=== PATIENT | female | born 1955 | race Caucasian/White ===

== ENCOUNTER 2019-08-05 10:31 | Outpatient (CLI) | payer MEDICARE, OTHER, SELFPAY ==
--- NOTE | 2019-08-05 10:47 | MM_ITS ---
WS: [id number] BILATERAL DIGITAL SCREENING MAMMOGRAPHY WITH CAD CLINICAL INFORMATION: SCREENING HISTORY: Screening mammogram. No current complaints. COMPARISON: July 09, 2018 TECHNIQUE: Bilateral CC and MLO views. FINDINGS: Scattered fibroglandular densities bilaterally. Stable intramammary lymph nodes. Stable calcified nod ule measuring 13 mm mid left breast. No suspicious focal mass, asymmetry, calcifications, or architec tural distortion. No evidence of malignancy. MM/[place] [id number] IMPRESSION: BI-RADS: 2-Benign FOLLOW UP: 1 Year Follow-up Recommend return to annual screening mammography.
== END 2019-08-05 10:32 | disposition home or self-care (01) ==
LOC: RADSHAW 10:31
PROVIDERS: Family Provider Family Medicine; PCP Family Medicine; Visit Provider Obstetrics & Gynecology
DX: Z12.31 Encounter for screening mammogram for malignant neoplasm of breast (principal)
CPT/HCPCS: 77067

== ENCOUNTER 2019-11-19 10:37 | Emergency (ER) | payer MEDICARE, OTHER, SELFPAY ==
[2019-11-19 11:04] VITALS: BP 158/83; PULSE 75; RESP 18; TEMP 36.7; O2SAT 97; BMI 30.1
--- NOTE | 2019-11-19 11:16 | CT_ITS ---
WS: [id number] CT cervical spine. Additional two-dimensional coronal and sagittal reconstruction was performed. 11/18 Clinical Data: fall/trauma Comparison: None. DLP: 700.[address] scans at [facility] use at least one of these dose optimization techniques: automat ed exposure control; mA and/or kV adjustment per patient size (includes targeted exams where dose is matched to clinical indication); or iterative reconstruction. Findings: No compression fractures are seen. There is narrowing of the C5-C6 disc with minimal anterior and pos terior osteoarthritis change. The spinous processes are in good alignment. The odontoid is unremarkab le. There is no prevertebral soft tissue swelling. The soft tissues of the cervical spine and the anitha g apices are not remarkable. C2-C3: No disc bulge, canal stenosis or foraminal stenosis is seen. C3-C4: No disc bulge, canal stenosis or foraminal stenosis is seen. C4-C5: No disc bulge, canal stenosis or foraminal stenosis is seen. C5-C6: There is minimal osteoarthritic impingement on the spinal canal. Mild canal stenosis is presen t. C6-C7: No disc bulge, canal stenosis or foraminal stenosis is seen. C7-T1: No disc bulge, canal stenosis or foraminal stenosis is seen. CT/CT cervical spin wo con* [id number] Impression: 1. Negative for cervical spine fracture. 2. Osteoarthritis at C5-C6.
--- NOTE | 2019-11-19 11:16 | CT_ITS ---
WS: [id number] CT scan of the head, 11/19/2019 Clinical Data: fall/trauma Comparison: MRI of the head and brain, 04/01/2013 DLP: 760.[address] scans at [facility] use at least one of these dose optimization techniques: automat ed exposure control; mA and/or kV adjustment per patient size (includes targeted exams where dose is matched to clinical indication); or iterative reconstruction. Findings: The ventricular system is normal without shift. No recent infarct or hemorrhage is seen. There are no abnormal intracerebral masses. The cerebellum and brainstem are not remarkable. The cerebellar tonsi ls extend minimally below the foramen magnum but this is not changed. Bony windows of the skull and skull base show no fractures or erosions. The mastoid air cells, internet sales director al auditory canals, sella turcica, intraorbital contents, and paranasal sinuses are unremarkable. CT/CT head wo con* [id number] Impression: Negative CT scan of the head
--- NOTE | 2019-11-19 11:16 | CT_ITS ---
WS: [id number] CT scan of the maxillofacial region. Additional two-dimensional coronal and sagittal reconstruction w as performed. 11/19/2019 Clinical Data: fall; nasal trauma Comparison: None. DLP: 763.[address] scans at [facility] use at least one of these dose optimization techniques: automat ed exposure control; mA and/or kV adjustment per patient size (includes targeted exams where dose is matched to clinical indication); or iterative reconstruction. Findings: There is a comminuted fracture of the nasal bone at the tip. There is minimal subcutaneous air at the right side of the nasal bone. The remainder of the facial bones is unremarkable. The paranasal sinuses show no air-fluid levels. The orbits and orbital contents are normal. The mastoid air cells, internal auditory canals, and sell a turcica are not remarkable. The temporal mandibular joints appear to be normal. The zygomatic arches and nasal bones are normal. The floor of the mouth and parapharyngeal regions demonstrate no abnormalities. The salivary glands a ppear to be normal. CT/CT facial bones wo con* [id number] Impression: Comminuted fracture of the nasal bones.
--- NOTE | 2019-11-19 11:19 | ED_ITS ---
HPI - Fall General: Chief Complaint: Fall Stated Complaint: fall/hit face Time Seen by Provider: 11/19/19 11:07 Source: patient and family Mode of arrival: ambulatory Limitations: no limitations History of Present Illness: HPI Narrative: Patient is a very nice 63-year-old female who presents to ED today along with her for evaluation following a fall. Patient tells me she slipped on a wet surface and fell face first striking her face/nose. No LOC. She does not complain of a headache or neck pain. No other injury sustained during the fall. She notes pain to her nose as well as lacerations. Associated symptoms-after fall: Denies abdominal pain, chest pain, confusion, difficulty walking, headache(s), neck pain or vertigo Review of Systems Eyes: Denies: change in vision, blurry vision, blind spots, photophobia, eye discharge or seeing flashes ENMT: Reports: other (bleeding from nares); Denies: odynophagia Card: Denies: chest pain Resp: Denies: dyspnea GI: Denies: abdominal pain, nausea or vomiting Musc: Denies: neck pain, back pain, extremity pain or joint pain Skin/Breast: Reports: other (lacerations to nose) Neuro: Denies: headache(s), numbness in extremities, weakness in extremities, sensory changes, lack of coordination, difficulty walking, frequent falls, dizziness, vertigo, confusion or Slurred speech present [facility] ED PFSH: Medical History (Updated 11/19/19 @ 13:38 by LAURYN Solitario) Angiomyolipoma of kidney Fibromyalgia Gout, unspecified Localized osteoarthritis of both hands Osteoarthritis of both knees Surgical History H/O dilation and curettage (09/26/13) Dx: PMB. Performed by Dr. Mayra Gregory at [facility] in [place], [place]. History of total vaginal hysterectomy (TVH) (10/21/13) Total vaginal hysterectomy, Anterior vaginal repair, Single incision suburethral sling. Dx: PMB, uterovaginal prolapse, stress urinary incontinence. Performed by Dr. Malachi Silverman at [facility] in [place], [place]. Hx of tubal ligation Status post surgery (~2009) 2009 or . Kink in ureter. Performed in [place], [place]. Family History Mother Colon cancer Father Skin cancer CHF (congestive heart failure) COPD (chronic obstructive pulmonary disease) Heart disease Grandmother Stroke Ovarian cancer Diabetes Maternal Grandmother Stroke Social History Smoking and tobacco status: never smoked Alcohol intake: never Physical Exam Const: COMMON NORMALS: no acute distress, average body habitus, patient oriented x3, no limitations, healthy appearing, alert and well nourished HENMT: COMMON NORMALS: normocephalic, atraumatic, hearing grossly normal bilaterally, external ears normal, EAC's normal, TM's normal bilaterally, moist oral mucous membranes, oropharynx normal, dentition normal and gingiva normal HEAD & SCALP: normal to inspection, normocephalic and atraumatic FACE & SINUS: sinuses nontender NOSE: Other nasal findings present (see below) NOSE IMAGE: 1. through and through 1.0 cm laceration 2. laceration to bottom columella and medial pranay EXTERNAL EAR: Yes external ears normal EXTERNAL AUDITORY CANAL: EAC's normal TYMPANIC MEMBRANE: TM's normal bilaterally MOUTH: Normal oral and palatal mucosa present, lip normal and tongue normal THROAT: posterior oropharynx normal, tonsils normal and uvula midline OTHER: laceration to L lateral nare/lateral pranay-1.0cm; additional laceration through bottom portion of col umella and bilateral medial pranay Neck/C-Spine: COMMON NORMALS: full ROM CERVICAL SPINE: Yes cervical ROM normal, No pain with cervical ROM and No Cervical spine tenderness Chest: COMMONS NORMALS: normal inspection of the chest and normal palpation of entire chest wall Resp: COMMON NORMALS: normal respiratory effort Back/Pelvis: COMMON NORMALS: thoracic and lumbar spine normal to inspection, no thoracic nor lumbar tenderness and thoraco-lumbar ROM normal Extremity: COMMON NORMALS: normal to inspection and full ROM Neuro: COMMON NORMALS: patient oriented x3 SENSORIUM/ORIENTATION: Yes alert Skin: OTHER: see facial assessment Procedures Laceration Laceration 1: Site: face (nose) Side (If applicable): left Size (cm): 1.0 Description: linear Depth: [id number] Local Anesthetic: other anesthetic (L infraorbital block) Amount of anesthesia used (mL): 2.0 Pre-repair: wound explored and irrigated extensively Skin layer closed with: vicryl Size (cm): 5-0 Number of sutures: 4 Technique: simple, interrupted Laceration 2: Site: face (nose) Size (cm): 1.0 Description: stellate and irregular Depth: [id number] Local Anesthetic: lidocaine 2% Amount of anesthesia used (mL): 0.5 Pre-repair: wound explored and irrigated extensively Skin layer closed with: vicryl Size (cm): 5-0 Number of sutures: 5 Technique: simple, interrupted Course Vital Signs: Vital signs: Vital Signs Temperature 98.1 F 11/19/19 11:04 Pulse Rate 71 11/19/19 13:47 Respiratory Rate 17 11/19/19 13:47 Blood Pressure 133/74 11/19/19 13:47 Pulse Oximetry 95 11/19/19 13:47 MDM - Fall MDM Narrative: Medical decision making narrative: Wounds were irrigated and repaired with absorbable sutures. She does have a comminuted nasal bone fracture. We will place patient on antibiotics and get her prompt follow-up with ENT for further evaluation. Patient's head and C-spine CT scans were normal. Return to ED precautions given. Imaging Data^: CT Head: Radiologist's impression: [address] [address] [address] Scan Report Signed Patient: Aarti Biggs Unit #: [id number] : 1955 Age/Sex: 63 / F ADM Date: 11/19/19 Loc: ER Room/Bed: Attending Dr: Ordering Provider/Ordering MD: Sarah Hyman Date of Service: 11/19/19 Procedure(s): CT head wo con* [id number] Accession Number(s): [id number] Report Number: [id number] WS: [id number] CT scan of the head, 11/19/2019 Clinical Data: fall/trauma Comparison: MRI of the head and brain, 04/01/2013 DLP: 760.[address] scans at [facility] use at least one of these dose optimization techniques: automated exposure control; mA and/or kV adjustment per patient size (includes targeted exams where dose is matched to clinical indication); or iterative reconstruction. Findings: The ventricular system is normal without shift. No recent infarct or hemorrhage is seen. There are no abnormal intracerebral masses. The cerebellum and brainstem are not remarkable. The cerebellar tonsils extend minimally below the foramen magnum but this is not changed. Bony windows of the skull and skull base show no fractures or erosions. The mastoid air cells, internal auditory canals, sella turcica, intraorbital contents, and paranasal sinuses are unremarkable. CT/CT head wo con* [id number] Impression: Negative CT scan of the head Dictated By: Paige Walker MD Signed By: Paige Walker MD Signed Date/Time: 11/19/19 122 DD/ 122 CT cervical: Radiologist's impression: [address] [address] [address] Scan Report Signed Patient: Aarti Biggs Unit #: [id number] : 1955 Age/Sex: 63 / F ADM Date: 11/19/19 Loc: ER Room/Bed: Attending Dr: Ordering Provider/Ordering MD: Sarah Hyman Date of Service: 11/19/19 Procedure(s): CT cervical spin wo con* [id number] Accession Number(s): [id number] Report Number: [id number] WS: [id number] CT cervical spine. Additional two-dimensional coronal and sagittal reconstruction was performed. 11/19/2019 Clinical Data: fall/trauma Comparison: None. DLP: 700.[address] scans at [facility] use at least one of these dose optimization techniques: automated exposure control; mA and/or kV adjustment per patient size (includes targeted exams where dose is matched to clinical indication); or iterative reconstruction. Findings: No compression fractures are seen. There is narrowing of the C5-C6 disc with minimal anterior and posterior osteoarthritis change. The spinous processes are in good alignment. The odontoid is unremarkable. There is no prevertebral soft tissue swelling. The soft tissues of the cervical spine and the lung apices are not remarkable. C2-C3: No disc bulge, canal stenosis or foraminal stenosis is seen. C3-C4: No disc bulge, canal stenosis or foraminal stenosis is seen. C4-C5: No disc bulge, canal stenosis or foraminal stenosis is seen. C5-C6: There is minimal osteoarthritic impingement on the spinal canal. Mild canal stenosis is present. C6-C7: No disc bulge, canal stenosis or foraminal stenosis is seen. C7-T1: No disc bulge, canal stenosis or foraminal stenosis is seen. CT/CT cervical spin wo con* [id number] Impression: 1. Negative for cervical spine fracture. 2. Osteoarthritis at C5-C6. Dictated By: Paige Walker MD Signed By: Paige Walker MD Signed Date/Time: 11/19/19 1231 DD/ 1227 CT facial: Radiologist's impression: [address] [address] [address] Scan Report Signed Patient: Aarti Biggs Unit #: [id number] : 1955 688 Age/Sex: 63 / F ADM Date: 11/19/19 Loc: ER Room/Bed: Attending Dr: Ordering Provider/Ordering MD: Sarah Hyman Date of Service: 11/19/19 Procedure(s): CT facial bones wo con* [id number] Accession Number(s): [id number] Report Number: [id number] WS: [id number] CT scan of the maxillofacial region. Additional two-dimensional coronal and sagittal reconstruction was performed. 11/19/2019 Clinical Data: fall; nasal trauma Comparison: None. DLP: 763.[address] scans at [facility] use at least one of these dose optimization techniques: automated exposure control; mA and/or kV adjustment per patient size (includes targeted exams where dose is matched to clinical indication); or iterative reconstruction. Findings: There is a comminuted fracture of the nasal bone at the tip. There is minimal subcutaneous air at the right side of the nasal bone. The remainder of the facial bones is unremarkable. The paranasal sinuses show no air-fluid levels. The orbits and orbital contents are normal. The mastoid air cells, internal auditory canals, and sella turcica are not remarkable. The temporal mandibular joints appear to be normal. The zygomatic arches and nasal bones are normal. The floor of the mouth and parapharyngeal regions demonstrate no abnormalities. The salivary glands appear to be normal. CT/CT facial bones wo con* [id number] Impression: Comminuted fracture of the nasal bones. Dictated By: Paige Walker MD Signed By: Paige Walker MD Signed Date/Time: 11/19/19 1234 DD/ 1231 Discharge Plan Discharge Patient Disposition: Home, Self-Care Clinical Impression: Nasal bone fracture Qualifiers: Encounter type: initial encounter Fracture type: open Qualified Code(s): S02.2XXB - Fracture of nasal bones, initial encounter for open fracture Complex laceration of nose Qualifiers: Encounter type: initial encounter Qualified Code(s): S01.21XA - Laceration without foreign body of nose, initial encounter Condition: Stable Prescriptions: New hydrocodone-acetaminophen 5-325 mg tablet 1 tab PO Q6H PRN (Reason: pain) Qty: 14 RF: 0 Zofran 4 mg tablet 4 mg PO Q6H PRN (Reason: nausea and vomiting) Qty: 14 RF: 0 Augmentin 875-125 mg tablet 1 tab PO Q12H 7 Days Qty: 14 RF: 0 No Action niacin 500 mg tablet extended release 500 mg PO QAM RF: 0 allopurinol 100 mg tablet 100 mg PO DAILY RF: 0 evening primrose oil 500 mg capsule 500 mg PO DAILY RF: 0 alprazolam 0.25 mg tablet 0.25 mg PO DAILY PRN (Reason: anxiety) RF: 0 amitriptyline 100 mg tablet 100 mg PO DAILY RF: 0 duloxetine [Cymbalta] 60 mg capsule,delayed release(DR/EC) 60 mg PO DAILY RF: 0 Discharge Orders: Discharge Order (Routine); Ordered 11/19/19 Ordered By: Sarah Hyman Referrals: Sesar Loomis MD [Physician] - Kali Cabrales MD [Primary Care Provider] - Patient Instructions: Nasal Fracture (ED), Laceration (ED) Activity Restrictions/Additional Instructions: As discussed please keep wounds clean with warm soap and water several times daily. Begin your antibiotics immediately. You may take the pain and nausea medications as needed. Case management will contact you soon to establish your appointment for ENT follow-up with Dr. Loomis. Discharge Date/Time: 11/19/19 13:47 Coding Level of Care Code ED Photographic Equipment Assembler for Chg Fwd Exam Detailed
[2019-11-19] MEDS: tetanus-diphtheria tox (adult) 0.5 mL SDV IM (11:39)
[2019-11-19 11:40] VITALS: RESP 18; O2SAT 97
[2019-11-19] MEDS: morphine 4 mg/mL SDV 1 mL IM (11:40)
[2019-11-19] MEDS: ondansetron 2 mg/ML SDV 2 mL 4 MG IM (11:41)
[2019-11-19 12:16] VITALS: BP 182/111; PULSE 82; RESP 18; O2SAT 96
[2019-11-19] MEDS: lidocaine 2% INJ 20 mL INJECTION (12:30)
[2019-11-19 13:47] VITALS: BP 133/74; PULSE 71; RESP 17; O2SAT 95
--- NOTE | 2019-11-19 15:35 | DCPLANNER ---
electrical project manager was asked to schedule a follow up appointment for patient with Dr. Loomis. electrical project manager faxed patients information to the ENT clinic. Clinic will call complex case manager and patient with appointment information.
--- NOTE | 2019-11-26 10:11 | DCPLANNER ---
Patient had a follow up appointment with Dr. Loomis scheduled for 11.20.19. Patient did attend the appointment.
== END 2019-11-19 13:47 | disposition home or self-care (01) ==
PROVIDERS: Emergency Provider Physician Assistant; Family Provider Family Medicine; PCP Family Medicine
DX: S02.2XXB Fracture of nasal bones, initial encounter for open fracture (principal); S01.21XA Laceration without foreign body of nose, initial encounter; W01.0XXA Fall on same level from slipping, tripping and stumbling without subsequent striking against object, initial encounter; Z23 Encounter for immunization
CPT/HCPCS: 12011; 12345; 70450; 70486; 72125; 90471; 90714; 96372; 99282; 99283; J2001; J2270; J2405

== ENCOUNTER 2019-11-24 15:03 | Outpatient (CLI) | payer MEDICARE, OTHER, SELFPAY ==
[2019-11-24 15:53] LABS: Alanine Aminotransferase 17 U/L (0-33); Albumin Level 3.8 g/dL (3.5-5.2); Alkaline Phosphatase 60 IU/L (35-105); Anion Gap 12.2 (5-19); Aspartate Amino Transferase 24 U/L (0-32); Blood Urea Nitrogen 17 mg/dL (8-23); Calcium 8.9 mg/dL (8.5-10.5); Carbon Dioxide 30 mmol/L (22-29); Chloride 105 mmol/L (98-107); Globulin 2.4 g/dL (1.3-4.6); Glucose 112 mg/dL (65-115); Osmolality Calculated 293 mOsm/kg (285-295); Potassium 4.2 mmol/L (3.5-5.1); Sodium 143 mmol/L (136-145); Total Bilirubin 0.8 mg/dL (0.15-1.2); Total Protein 6.2 g/dL (6.6-8.7)
[2019-11-24 16:32] LABS: Basophils # 0.1 10^3/uL (0.0-0.1); Basophils % 0.8 %; Eosinophils # 0.2 10^3/uL (0.0-0.8); Eosinophils % 2.7 %; Hematocrit 36.1 % (37.0-47.0); Hemoglobin 11.7 g/dL (11.5-15.3); Lymphocytes # 1.4 10^3/uL (0.8-4.8); Lymphocytes % 18.6 %; Mean Corpuscular HGB Conc 32.4 g/dL (30.0-36.0); Mean Corpuscular Hemoglobin 31.5 pg (28.0-34.0); Mean Corpuscular Volume 97.3 fL (81-99); Mean Platelet Volume 10.8 fL (7.4-10.4); Monocytes # 0.6 10^3/uL (0.2-0.9); Monocytes % 7.7 %; Neutrophils # 5.2 10^3/uL (1.8-7.7); Neutrophils % 69.8 %; Nucleated Red Blood Cells % 0 %; Platelet Count 279 10^3/cmm (130-400); Red Blood Count 3.71 10^6/uL (4.1-5.3); Red Cell Distribution Width 13.2 % (12.1-15.1); White Blood Count 7.5 10^3/uL (4.0-10.0)
--- NOTE | 2019-11-24 18:21 | ECG_ITS ---
Measurements Intervals Tracy Rate: 85 P: 21 AZ: 158 QRS: -30 QRSD: 105 T: 50 QT: 352 QTc: 420 SINUS RHYTHM BORDERLINE LEFT AXIS DEVIATION [QRS AXIS < -20] MODERATE VOLTAGE CRITERIA FOR LVH, CONSIDER NORMAL VARIANT [MEETS CRITERIA IN ONE OF: R(aVL), S(V1), R(V5), R(V5/V6)+S(V1)] Compared to ECG 04/18/2019 10:47:50 ST (T wave) deviation no longer present Electronically Signed On 11-24-2019 20:36:28 CDT by Catrachito Mack M.D. [email or web address]
== END 2019-11-24 15:04 | disposition home or self-care (01) ==
LOC: RT 15:09
PROVIDERS: PCP Family Medicine; Visit Provider Specialist
DX: R00.0 Tachycardia, unspecified (principal)
CPT/HCPCS: 36415; 80053; 85025; 93005

== ENCOUNTER 2021-01-07 13:40 | Outpatient (CLI) | payer MEDICARE, OTHER, SELFPAY ==
--- NOTE | 2021-01-07 13:46 | USCV_ITS ---
Aarti Biggs Age: 65 Gender: F : 1955 Exam Date: 01/07/2021 13:54 Ordering Phys: Kali Cabrales MD Technologist: Tyesha Prieto Exam Location: [facility] [place] Indication: LT FOOT SWELLING HISTORY: Lt foot swelling 2 months PROCEDURES: Venous duplex imaging was performed in only the left lower extremity. The following venous structures were evaluated: common femoral vein, profunda vein, proximal portion of the greater saphenous vein, superficial femoral vein, and the popliteal vein. In addition, the posterior tibial and peroneal trunk were evaluated. Serial compression, augmentation maneuvers, and spectral Doppler flow evaluation were performed. FINDINGS: Normal 2-D Doppler and augmentation and compressibility throughout the lower extremity venous structures. Additional imaging through the proximal calf veins also reveals no thrombus. Limited evaluation of the greater saphenous vein is patent with no thrombus.. CONCLUSIONS No evidence of left lower extremity DVT. Castillo Archer MD (Electronically Signed) Final Date: 07 January 2021 15:03 S
== END 2021-01-07 13:41 | disposition home or self-care (01) ==
LOC: RAD 13:44
PROVIDERS: PCP Family Medicine; Visit Provider Family Medicine
DX: M79.89 Other specified soft tissue disorders (principal)
CPT/HCPCS: 93971

== ENCOUNTER 2021-01-26 14:03 | Outpatient (CLI) | payer MEDICARE, OTHER, SELFPAY ==
--- NOTE | 2021-01-26 14:06 | MM_ITS ---
WS: [id number] BILATERAL SCREENING DIGITAL MAMMOGRAM WITH CAD HISTORY: SCREENING COMPARISON: 08/05/2019, 07/09/2018 and 05/17/2017 Bilateral CC and MLO views submitted. Computer aided detection analyzed. Breast composition: There are scattered areas of fibroglandular density. No suspicious masses, microc alcifications or architectural distortion. Stable bilateral breast masses and calcifications. No inte rval change. MM/[place] [id number] IMPRESSION: BI-RADS: 2-Benign FOLLOW UP: 1 Year Follow-up
--- NOTE | 2021-01-26 14:57 | XR_ITS ---
WS: [id number] SCREENING DEXA SCAN [place] CLINICAL INFORMATION: ANNUAL EXAM, OSTEOPOROSIS COMPARISON: None. FINDINGS: The L1-L4 bone mineral density measures 1.244 g/cm2. This corresponds to a T score score of 0.5 and Z score of 1.0. Left femoral neck bone mineral density measures 0.921 g/cm2. This corresponds to a T score of -0.7 an d Z score of -0.2. Right femoral neck bone mineral density measures 0.965 g/cm2. This corresponds to a T score -0.3of an d Z score of 0.1. Mean femoral neck bone mineral density measures 0.943 g/cm2. This corresponds to a T score of -0.5 an d Z score of 0.0. XR/XR DEXA axial skeleton* [id number] IMPRESSION: Normal bone mineralization. Patient's FRAX calculated 10 year probability for major osteoporotic fracture i s 7.8 % and osteoporotic hip fracture is 0.6%.
== END 2021-01-26 14:04 | disposition home or self-care (01) ==
LOC: RADSHAW 14:05
PROVIDERS: PCP Family Medicine; Visit Provider Family Medicine
DX: Z12.31 Encounter for screening mammogram for malignant neoplasm of breast (principal); Z78.0 Asymptomatic menopausal state
CPT/HCPCS: 77067; 77080

== ENCOUNTER 2021-06-13 12:39 | Outpatient (CLI) | payer MEDICARE, OTHER, SELFPAY ==
--- NOTE | 2021-06-13 12:47 | US_ITS ---
WS: [id number] ULTRASOUND RIGHT BREAST HISTORY: MASS RIGHT BREAST 4 O'CLOCK POSITION COMPARISON: Screening mammogram 01/26/2021 TECHNIQUE: 2-D and Doppler. Ultrasound is directed to the area of clinical concern. Area of concern is at 3:00, 4 cm from the nip ple. There is a very vague area of increased echogenicity within the soft tissues. No discrete mass o r increased vascularity. There is an area of superficial bruising in this area also. I suspect these changes are related to prior trauma. On the recent mammogram of 01/26/2021 there was no abnormality. US/US breast RT limited* [id number] IMPRESSION: BI-RADS: 3-Probably Benign FOLLOW-UP: 6 Month Follow-up There is no discrete mass in the area of clinical concern as directed by the igor najera. Very slight increased echogenicity with adjacent superficial bruising. I suspect these changes may all be posttraumatic. Patient also feels like the fi ndings are improving. If these findings do not continue to improve follow-up im aging is recommended. No abnormality was noted on the prior mammogram of 021 and I favor the changes are probably posttraumatic seen by ultrasound.
== END 2021-06-13 12:40 | disposition home or self-care (01) ==
LOC: RAD 12:43
PROVIDERS: PCP Family Medicine; Visit Provider Family Medicine
DX: N64.4 Mastodynia (principal); N63.14 Unspecified lump in the right breast, lower inner quadrant
CPT/HCPCS: 76642

== ENCOUNTER 2021-10-11 06:00 | Outpatient (RCR) | payer MEDICARE, OTHER, SELFPAY | END 2021-11-08 23:59 | disposition home or self-care (01) | LOC: SPT 06:00 | PROVIDERS: PCP Family Medicine; Referring Provider Family Medicine; Visit Provider Family Medicine | DX: R29.898 Other symptoms and signs involving the musculoskeletal system (principal); M25.551 Pain in right hip | CPT/HCPCS: 97110; 97162 ==

== ENCOUNTER 2021-11-09 06:00 | Outpatient (RCR) | payer MEDICARE, OTHER, SELFPAY | END 2021-12-08 23:59 | disposition home or self-care (01) | LOC: SPT 06:00 | PROVIDERS: PCP Family Medicine; Referring Provider Family Medicine; Visit Provider Family Medicine | DX: R53.1 Weakness (principal); R29.898 Other symptoms and signs involving the musculoskeletal system; M25.551 Pain in right hip | CPT/HCPCS: 97110 ==

== ENCOUNTER 2022-02-06 12:35 | Outpatient (CLI) | payer MEDICARE, OTHER, SELFPAY ==
--- NOTE | 2022-02-06 13:00 | MM_ITS ---
WS: [id number] BILATERAL 3D TOMOSYNTHESIS DIGITAL SCREENING MAMMOGRAPHY WITH CAD CLINICAL INFORMATION: SCREENING HISTORY: Screening mammogram. No current complaints. COMPARISON: January 26, 2021 TECHNIQUE: Bilateral CC and MLO views. FINDINGS: Scattered fibroglandular densities bilaterally. Stable ovoid nodule mid LEFT breast with calcificatio n. A few incidental intramammary lymph nodes. Vascular calcification. No suspicious focal mass, asymm etry, calcifications, or architectural distortion. No evidence of malignancy. MM/[place] [id number] IMPRESSION: BI-RADS: 2-Benign FOLLOW UP: 1 Year Follow-up Recommend return to annual screening mammography.
== END 2022-02-06 12:36 | disposition home or self-care (01) ==
LOC: RAD 12:35
PROVIDERS: PCP Family Medicine; Visit Provider Family Medicine
DX: Z12.31 Encounter for screening mammogram for malignant neoplasm of breast (principal)
CPT/HCPCS: 77063; 77067

== ENCOUNTER → 2022-03-01 08:13 | Outpatient (BNVA) | payer MEDICARE, OTHER, SELFPAY | PROVIDERS: PCP Family Medicine; Visit Provider Family Medicine | DX: Z13.6 Encounter for screening for cardiovascular disorders (principal) | CPT/HCPCS: 80053; 80061; 85025 ==

== ENCOUNTER → 2022-03-13 10:22 | Outpatient (BNVA) | payer MEDICARE, OTHER, SELFPAY | PROVIDERS: PCP Family Medicine; Visit Provider Registered Nurse Neonatal Intensive Care | DX: N39.0 Urinary tract infection, site not specified (principal) | CPT/HCPCS: 81000 ==

== ENCOUNTER → 2022-03-30 13:41 | Outpatient (BNVA) | payer MEDICARE, OTHER, SELFPAY | PROVIDERS: PCP Family Medicine; Visit Provider Family Medicine | DX: R60.0 Localized edema (principal) | CPT/HCPCS: 80048 ==

== ENCOUNTER → 2022-08-07 17:12 | Outpatient (BNVA) | payer MEDICARE, OTHER, SELFPAY | PROVIDERS: PCP Family Medicine; Visit Provider Family Medicine | DX: R39.9 Unspecified symptoms and signs involving the genitourinary system (principal) | CPT/HCPCS: 81000 ==

== ENCOUNTER → 2022-08-14 12:23 | Outpatient (BNVA) | payer MEDICARE, OTHER, SELFPAY | PROVIDERS: PCP Family Medicine; Visit Provider Nurse Practitioner Family | DX: N39.0 Urinary tract infection, site not specified (principal) | CPT/HCPCS: 87086 ==

== ENCOUNTER → 2022-10-10 10:31 | Outpatient (BNVA) | payer MEDICARE, OTHER, SELFPAY | PROVIDERS: PCP Family Medicine; Visit Provider Family Medicine | DX: R10.2 Pelvic and perineal pain (principal) | CPT/HCPCS: 81000; 87086 ==

== ENCOUNTER 2022-10-30 07:03 | Outpatient (CLI) | payer MEDICARE, OTHER, SELFPAY ==
[2022-10-30] MEDS: iohexol 350 mg/mL 500 mL Btl (per mL) PO (08:30)
--- NOTE | 2022-10-30 08:30 | CT_ITS ---
WS: [id number] CT ABDOMEN AND PELVIS WITH CONTRAST HISTORY: pelvic pain for 2 years. TECHNIQUE: Imaging performed of the abdomen and pelvis with IV contrast and oral. Dual phase imaging of the abdomen and pelvis. Coronal and sagittal reformats are submitted. All CT scans at [facility] use at least one of these dose optimization techniques: automated exposure control; mA and/or kV adjustment per patient size (includes targeted exams where dose is matched to clinical indication ); or iterative reconstruction. IV CONTRAST: Omnipaque 350; 100 mL IV. Oral contrast: Yes. DLP: 1993.93 mGy.cm COMPARISON: 08/21/2017 Lower thorax: Mild dependent changes at the lung bases. Heart is normal size. Moderate size hernia. Liver/biliary system: Long-term stability 10 mm low-attenuation mass in the RIGHT lobe of the liver h as decreased in size. No bile duct dilatation. Gallbladder: Normal. No gallstones or wall thickening. No pericholecystic fluid. Pancreas: Moderate atrophy. No pancreatic duct dilatation. Spleen: Normal size spleen. No mass or infarct. Adrenal glands: Normal. Right kidney: Normal size kidney. Mildly prominent extrarenal pelvis with no obstruction. Left kidney: Normal size kidney. Fat-containing solid mass extends laterally from the mid kidney wade ures 4.0 x 4.5 x 5.0 cm. Mass has slightly increased in size slowly over the last several years. Ther e is very mild dilatation of the LEFT renal pelvis and proximal ureter. Normal excretion from the kid cynthia. The proximal ureter is dilated and tapers normally. There is a mild stenosis and possible neopla sm in the proximal LEFT ureter seen best on the coronal reformats. Suggest additional evaluation of t he ureter. Aorta: Mild atherosclerosis with no aneurysm. Origin of celiac axis is difficult to visualize. Lymphadenopathy: None. Free fluid: None. GI tract: Normally distended stomach. No small bowel obstruction. Moderate diffuse constipation with overlapping loops of colon. Prior appendectomy. Abdominal wall: Fat containing umbilical hernia. Pelvis: Hysterectomy. No free fluid or adenopathy. Visualized urinary bladder is normal. No filling d efects or calcifications. No pelvic mass or adenopathy. Bones: LEFT lateral curvature and scoliosis lumbar spine. CT/CT abdomen pelvis w con* [id number] IMPRESSION: 1. No bladder abnormality identified. 2. Prior hysterectomy and appendectomy. 3. Focal narrowing involving the proximal LEFT ureter. The more proximal urete r is dilated with only minimal dilatation of the LEFT renal pelvis and calyces. Similar to prior studies. LEFT ureter should be evaluated for possible underly ing stricture or mass. Recommend follow-up with urology. 4. No LEFT renal angiomyolipoma has slowly increased in size now measuring 4.0 x 4.5 x 5.0 cm. Most recent measurement 3.3 x 2.9 x 3.1 cm. 5. Moderate constipation. 6. Moderate hiatal hernia.
[2022-10-30 09:00] LABS: Blood Urea Nitrogen 13 mg/dL (8-23); Glomerular Filtration Rate 62.3 mL/min (90-130)
[2022-10-30] MEDS: iohexol 350 mg/mL 500 mL Btl (per mL) IV (09:13)
== END 2022-10-30 07:04 | disposition home or self-care (01) ==
PROVIDERS: Radiology Neuroradiology; PCP Family Medicine; Visit Provider Family Medicine
DX: R10.2 Pelvic and perineal pain (principal); K59.00 Constipation, unspecified; K44.9 Diaphragmatic hernia without obstruction or gangrene
CPT/HCPCS: 74177; 82565; 84520; Q9967

== ENCOUNTER 2023-02-07 08:42 | Outpatient (CLI) | payer MEDICARE, OTHER, SELFPAY ==
--- NOTE | 2023-02-07 09:04 | MM_ITS ---
WS: [id number] BILATERAL SCREENING DIGITAL TOMOSYNTHESIS MAMMOGRAM WITH CAD HISTORY: screening mammogram COMPARISON: 02/06/2022 and 01/26/2021, 08/05/2019 Bilateral CC and MLO views with tomosynthesis and synthetic mammography submitted. Computer aided det ection analyzed. Breast composition: There are scattered areas of fibroglandular density. No suspicious masses, microc alcifications or architectural distortion. Scattered nodules and calcifications are stable. No distor tion or new mass. IMPRESSION: MM/[place] [id number] BI-RADS: 2-Benign FOLLOW UP: 1 Year Follow-up
== END 2023-02-07 08:43 | disposition home or self-care (01) ==
LOC: RAD 08:44 → MOBLMAM 09:04
PROVIDERS: PCP Family Medicine; Visit Provider Family Medicine
DX: Z12.31 Encounter for screening mammogram for malignant neoplasm of breast (principal)
CPT/HCPCS: 77063; 77067; 81000; 87086

== ENCOUNTER → 2023-02-25 14:24 | Outpatient (BNVA) | payer MEDICARE, OTHER, SELFPAY | PROVIDERS: PCP Family Medicine; Visit Provider Registered Nurse Neonatal Intensive Care | DX: J02.9 Acute pharyngitis, unspecified (principal); R51.9 Headache, unspecified; J02.0 Streptococcal pharyngitis; Z20.822 Contact with and (suspected) exposure to COVID-19 | CPT/HCPCS: 87426; 87880 ==

== ENCOUNTER → 2023-03-11 12:23 | Outpatient (BNVA) | payer MEDICARE, OTHER, SELFPAY | PROVIDERS: PCP Family Medicine; Visit Provider Family Medicine | DX: R30.9 Painful micturition, unspecified (principal); E86.0 Dehydration | CPT/HCPCS: 81000 ==

== ENCOUNTER → 2023-04-09 09:53 | Outpatient (BNVA) | payer MEDICARE, OTHER, SELFPAY | PROVIDERS: PCP Family Medicine; Visit Provider Family Medicine | DX: Z13.6 Encounter for screening for cardiovascular disorders (principal) | CPT/HCPCS: 80053; 80061; 85025 ==

== ENCOUNTER → 2023-04-16 13:58 | Outpatient (BNVA) | payer MEDICARE, OTHER, SELFPAY | PROVIDERS: PCP Family Medicine; Visit Provider Nurse Practitioner Family | DX: Z85.828 Personal history of other malignant neoplasm of skin (principal); L82.1 Other seborrheic keratosis; L82.0 Inflamed seborrheic keratosis; D22.5 Melanocytic nevi of trunk; L72.0 Epidermal cyst | CPT/HCPCS: 17110; 99213 ==

== ENCOUNTER 2023-10-10 10:20 | Outpatient (RCR) | payer MEDICARE, OTHER, SELFPAY | END 2023-11-09 23:59 | disposition home or self-care (01) | LOC: SPT 10:20 | PROVIDERS: PCP Family Medicine; Visit Provider Family Medicine | DX: M54.41 Lumbago with sciatica, right side (principal) | CPT/HCPCS: 97110; 97161 ==

== ENCOUNTER 2023-11-10 06:00 | Outpatient (RCR) | payer MEDICARE, OTHER, SELFPAY | END 2023-12-03 23:59 | disposition home or self-care (01) | LOC: SPT 06:00 | PROVIDERS: PCP Family Medicine; Visit Provider Family Medicine | DX: M54.41 Lumbago with sciatica, right side (principal) | CPT/HCPCS: 97110 ==

== ENCOUNTER → 2024-05-27 09:22 | Outpatient (BNVA) | payer MEDICARE, OTHER, SELFPAY | PROVIDERS: PCP Family Medicine Adult Medicine; Visit Provider Nurse Practitioner Family | DX: L82.1 Other seborrheic keratosis (principal); L72.0 Epidermal cyst; L57.8 Other skin changes due to chronic exposure to nonionizing radiation; D23.71 Other benign neoplasm of skin of right lower limb, including hip; Z08 Encounter for follow-up examination after completed treatment for malignant neoplasm; Z85.828 Personal history of other malignant neoplasm of skin; L82.0 Inflamed seborrheic keratosis; L53.8 Other specified erythematous conditions; R20.8 Other disturbances of skin sensation; L29.89 Other pruritus; L57.0 Actinic keratosis | CPT/HCPCS: 11102; 17000; 17110; 99214 ==

== ENCOUNTER 2024-07-16 07:31 | Outpatient (CLI) | payer MEDICARE, OTHER, SELFPAY ==
--- NOTE | 2024-07-16 07:40 | CT_ITS ---
WS: [id number] CT ABDOMEN AND PELVIS WITH CONTRAST HISTORY: PELVIC PAIN TECHNIQUE: Imaging performed of the abdomen and pelvis with IV contrast. Single phase imaging of the abdomen. Coronal and sagittal reformats are submitted. All CT scans at [facility] use at least one of these dose optimization techniques: automated exposure control; mA and/or kV adjustment per patient size (includes targeted exams where dose is matched to clinical indication); or iterative reconstruction. IV CONTRAST: Omnipaque 350; 100 mL IV. Oral contrast: Yes. DLP: 815.49 mGy.cm COMPARISON: 10/30/2022, 08/21/2017 Lower thorax: Lung bases are clear. Heart is normal size. Moderate size hiatal hernia. Liver/biliary system: Normal size liver. Liver is being slightly deformed by interposed colon between the liver and diaphragm which was present on prior studies. Too small to characterize hypodensity in the inferior RIGHT lobe. Previously described hypodensity in the far lateral RIGHT lobe is poorly vi sualized on today's study. Suspect this may be a hemangioma. Gallbladder: Normal. No gallstones or wall thickening. No pericholecystic fluid. Pancreas: Moderate atrophy. Spleen: Normal size spleen. No mass or infarct. Adrenal glands: Normal. Right kidney: No change. Extrarenal pelvis. No obstruction. Left kidney: Fat containing solid mass extending laterally from the mid kidney measures 4.1 x 4.3 x 4.8 cm. No interval increase in size since the most recent study. Small extrarenal pelvis. Aorta: Mild atherosclerosis with no aneurysm. Lymphadenopathy: None. Free fluid: None. GI tract: Nondistended stomach. No small bowel obstruction. Diffuse constipation. Abdominal wall: Fat containing umbilical hernia. Pelvis: Prior hysterectomy. Urinary bladder is not distended. No free fluid or adenopathy. Bones: S-shaped curvature lumbar spine. No destructive bone lesions. CT/CT abdomen pelvis w con* [id number] IMPRESSION: 1. Marked diffuse constipation. No obstruction. 2. Moderate size hiatal hernia. 3. No adenopathy or ascites. 4. Stable fat-containing mass involving the LEFT kidney consistent with the kn own LEFT renal angiomyolipoma measuring 4.1 x 4.3 x 4.8 cm. No significant incr ease in size since the most recent exam.
[2024-07-16] MEDS: iohexol 350 mg/mL 500 mL Btl (per mL) PO (07:41)
[2024-07-16] MEDS: iohexol 350 mg/mL 500 mL Btl (per mL) IV (08:58)
== END 2024-07-16 07:32 | disposition home or self-care (01) ==
LOC: RAD 07:32
PROVIDERS: PCP Family Medicine Adult Medicine; Visit Provider Electrodiagnostic Medicine
DX: R10.2 Pelvic and perineal pain (principal); K59.00 Constipation, unspecified; K44.9 Diaphragmatic hernia without obstruction or gangrene; R93.2 Abnormal findings on diagnostic imaging of liver and biliary tract; K86.89 Other specified diseases of pancreas; N28.89 Other specified disorders of kidney and ureter; R93.422 Abnormal radiologic findings on diagnostic imaging of left kidney; I70.0 Atherosclerosis of aorta; K42.9 Umbilical hernia without obstruction or gangrene; Z98.890 Other specified postprocedural states; M43.8X6 Other specified deforming dorsopathies, lumbar region
CPT/HCPCS: 74177

== ENCOUNTER → 2024-10-01 10:21 | Outpatient (BNVA) | payer MEDICARE, OTHER, SELFPAY | PROVIDERS: PCP Family Medicine Adult Medicine; Visit Provider Student in an Organized Health Care Education/Training Program | DX: M70.61 Trochanteric bursitis, right hip (principal) | CPT/HCPCS: 20610; 99204; J3301; J3490; J9999 ==

== ENCOUNTER 2024-10-20 12:14 | Outpatient (RCR) | payer MEDICARE, OTHER, SELFPAY | END 2024-11-08 23:59 | disposition home or self-care (01) | LOC: SPT 12:14 | PROVIDERS: Visit Provider Student in an Organized Health Care Education/Training Program | DX: M70.61 Trochanteric bursitis, right hip (principal) | CPT/HCPCS: 97110; 97161 ==

== ENCOUNTER → 2024-10-21 14:27 | Outpatient (BNVA) | payer MEDICARE, OTHER, SELFPAY | PROVIDERS: Visit Provider Dermatology | DX: L81.4 Other melanin hyperpigmentation (principal); L72.0 Epidermal cyst; L82.1 Other seborrheic keratosis; D22.5 Melanocytic nevi of trunk; D69.2 Other nonthrombocytopenic purpura; L73.8 Other specified follicular disorders; Z08 Encounter for follow-up examination after completed treatment for malignant neoplasm; Z85.828 Personal history of other malignant neoplasm of skin; L82.0 Inflamed seborrheic keratosis; L57.0 Actinic keratosis | CPT/HCPCS: 17000; 17110; 99213 ==

== ENCOUNTER 2024-11-09 05:00 | Outpatient (RCR) | payer MEDICARE, OTHER, SELFPAY | END 2024-11-28 12:30 | disposition home or self-care (01) | LOC: SPT 05:00 | PROVIDERS: PCP Electrodiagnostic Medicine; Visit Provider Student in an Organized Health Care Education/Training Program | DX: M70.61 Trochanteric bursitis, right hip (principal) | CPT/HCPCS: 97110 ==

== ENCOUNTER 2024-11-09 17:13 | Emergency (ER) | payer MEDICARE, OTHER, SELFPAY ==
[2024-11-09 17:18] VITALS: BP 111/64; PULSE 97; RESP 18; TEMP 36.6; O2SAT 97; BMI 34.0
[2024-11-09 18:24] VITALS: BP 123/67; PULSE 68; O2SAT 97
[2024-11-09 18:30] VITALS: BP 113/74; PULSE 67; O2SAT 95
[2024-11-09] MEDS: lidocaine 2% INJ 20 mL INJECTION (18:44)
--- NOTE | 2024-11-09 18:44 | PC.NURSE ---
pt wrist wound cleansed with ns, irrigated with ns, pat dry and a gauze placed over wound.
--- NOTE | 2024-11-09 19:23 | W.ED.WOUNDLC ---
HPI - Wound/Laceration General: Chief Complaint: Wound/Laceration Stated Complaint: fall / lt arm lac Time Seen by Provider: 11/09/24 17:59 History of Present Illness: This patient is a 68-year-old white female who presents to the emergency department for evaluation of a laceration of the left wrist. Patient states she was carrying a dish and it fell. She then slipped and lacerated her wrist on one of the broken pieces. Related Data Home Medications ?Medication ?Instructions ?Recorded ?Confirmed atorvastatin 40 mg tablet (Lipitor) 40 mg PO DAILY 10/01/24 10/01/24 coQ10 (ubiquinol) 100 mg capsule 100 mg PO BID 10/01/24 10/01/24 (Qunol Karthik CoQ10) collagen,hydrolysate 500 mg-biotin cap PO 10/01/24 10/01/24 800 mcg-ascorbic acid 50 mg capsule (Collagen 1500 Plus C) Previous Rx's ?Medication ?Instructions ?Recorded amitriptyline 50 mg tablet See Rx Instructions .Route 01/09/24 .COMPLEX #90 tabs duloxetine 60 mg capsule,delayed 60 mg PO DAILY #90 caps 01/09/24 release (Cymbalta) omeprazole 40 mg capsule,delayed 40 mg PO DAILY #90 caps 01/09/24 release solifenacin 10 mg tablet 10 mg PO DAILY #90 tabs 04/10/24 allopurinol 100 mg tablet See Rx Instructions .Route 06/17/24 .COMPLEX #90 tabs meloxicam 7.5 mg tablet See Rx Instructions .Route 06/17/24 .COMPLEX #180 tabs hydrochlorothiazide 25 mg tablet 25 mg PO QAM Edema/Htn #90 tabs 06/26/24 cephalexin 500 mg capsule 500 mg PO TID 7 days #21 caps 11/09/24 Allergies Allergy/AdvReac Type Severity Reaction Status Date / Time No Known Allergies Allergy Verified 11/09/24 17:15 Review of Systems General: Reports: 10 or more systems reviewed and unremarkable except in HPI and below PFSH ED PFSH: Medical History Osteoarthritis involving multiple joints on both sides of body both hands, both knees, rt shoulder, DDD cervical & Lumbar spine Osteoarthritis of right shoulder Herpes zoster Dx 02/27/2023 Pneumonia Insomnia History of nonmelanoma skin cancer Gastroesophageal reflux Fibromyalgia Angiomyolipoma of kidney Localized osteoarthritis of both hands Surgical History S/P nasal surgery (~11/2019) Broke nose from fall[place] [facility] [place] Hx of tubal ligation Status post surgery (~2009) 2009 or 11. Kink in ureter. Performed in [place], [place]. H/O dilation and curettage (09/26/13) Dx: PMB. Performed by Dr. Mayra Gregory at [facility] in [place], [place]. History of total vaginal hysterectomy (TVH) (10/21/13) Total partial vaginal hysterectomy, Anterior vaginal repair, Single incision suburethral sling. Dx: PMB, uterovaginal prolapse, stress urinary incontinence. Performed by Dr. Malachi Silverman at [facility] in [place], [place]. Family History Mother Colon cancer Father Skin cancer Congestive heart failure (CHF) COPD (chronic obstructive pulmonary disease) Heart disease Grandmother Stroke Ovarian cancer Diabetes Maternal Grandmother Stroke Social History Smoking and tobacco/nicotine status: never used tobacco/nicotine Alcohol intake: never Substance/Drug Use: never Physical Exam Skin: NARRATIVE SKIN EXAM: Approximately 3 cm laceration to the anterior aspect of the left wrist. No involvement of tendons, nerves or vascular structures. Procedures Laceration Laceration 1: Site: upper extremity Side (If applicable): left Size (cm): 3 Description: linear Depth: simple, single layer Local Anesthetic: lidocaine 2% Amount of anesthesia used (mL): 5 Pre-repair: wound explored, irrigated extensively and deep structures intact Skin layer closed with: nylon Size (cm): 3-0 Number of sutures: 1 Technique: running Course Vital Signs: Vital signs: Vital Signs Temperature 97.9 F 11/09/24 17:18 Pulse Rate 67 11/09/24 18:30 Respiratory Rate 18 11/09/24 17:18 Blood Pressure 113/74 11/09/24 18:30 Pulse Oximetry 95 11/09/24 18:30 Oxygen Delivery Me thod Room Air 11/09/24 18:30 MDM - Wound/Laceration Medical Decision Making Patient's tetanus was updated. She was placed on Keflex and given her first dose in the emergency department. Recommended she have the sutures removed in 7 to 10 days. She was discharged in stable condition. No radiology studies performed this visit Discharge Plan Discharge Patient Disposition: Home Clinical Impression: Laceration Condition: Stable Prescriptions: New cephalexin 500 mg capsule 500 mg PO TID 7 Days Qty: 21 0RF No Action amitriptyline 50 mg tablet See Rx Instructions .ROUTE .COMPLEX Qty: 90 1RF Dose Instruction: TAKE 1 TABLET BY MOUTH EVERY DAY Rx Instructions: TAKE 1 TABLET BY MOUTH EVERY DAY duloxetine [Cymbalta] 60 mg capsule,delayed release(DR/EC) 60 mg PO DAILY Qty: 90 1RF omeprazole 40 mg capsule,delayed release(DR/EC) 40 mg PO DAILY Qty: 90 1RF solifenacin 10 mg tablet 10 mg PO DAILY Qty: 90 0RF Collagen 1500 Plus C 500 mg-800 mcg- 50 mg capsule PO coQ10 (ubiquinol) [Qunol Karthik CoQ10] 100 mg capsule 100 mg PO BID atorvastatin [Lipitor] 40 mg tablet 40 mg PO DAILY meloxicam 7.5 mg tablet See Rx Instructions .ROUTE .COMPLEX Qty: 180 3RF Dose Instruction: TAKE 1 TABLET TWICE A DAY FOR ARTHRITIS/PAIN Rx Instructions: TAKE 1 TABLET TWICE A DAY FOR ARTHRITIS/PAIN allopurinol 100 mg tablet See Rx Instructions .ROUTE .COMPLEX Qty: 90 3RF Dose Instruction: TAKE 1 TABLET DAILY Rx Instructions: TAKE 1 TABLET DAILY hydrochlorothiazide 25 mg tablet 25 mg PO QAM Qty: 90 1RF Discharge Orders: Discharge ED (Routine); Ordered 11/09/24 Ordered By: Vidal Hoskins Referrals: Harish Albright DO [Primary Care Provider, Family Practice] Patient Instructions: Laceration (DC) Activity Restrictions/Additional Instructions: Clean the wound daily and apply antibiotic ointment. Have the sutures removed in 7 to 10 days. Print Language: [place] Islander Coding Level of Care Code ED Computer Networking Instructor Adjunct for [employer]
[2024-11-09] MEDS: cephALEXin 500 mg Capsule PO (19:27)
[2024-11-09] MEDS: tetanus-diphtheria tox (adult) 0.5 mL SDV IM (19:28)
[2024-11-09] MEDS: bacitracin ointment Pkt 1 EACH TOPICAL (19:28)
[2024-11-09 19:45] VITALS: BP 126/68; PULSE 78; O2SAT 96
== END 2024-11-09 19:46 | disposition home or self-care (01) ==
PROVIDERS: Emergency Provider Emergency Medicine; PCP Electrodiagnostic Medicine
DX: S61.512A Laceration without foreign body of left wrist, initial encounter (principal); W01.118A Fall on same level from slipping, tripping and stumbling with subsequent striking against other sharp object, initial encounter; Z85.828 Personal history of other malignant neoplasm of skin
CPT/HCPCS: 12002; 90471; 90714; 99283; J9999

== ENCOUNTER 2024-12-03 09:28 | Outpatient (CLI) | payer MEDICARE, OTHER, SELFPAY ==
--- NOTE | 2024-12-03 09:31 | MM_ITS ---
WS: [id number] BILATERAL SCREENING DIGITAL TOMOSYNTHESIS MAMMOGRAM WITH CAD HISTORY: SCREENING COMPARISON: 02/07/2023, 09/06/2021 and 05/17/2017 Bilateral CC and MLO views with tomosynthesis and synthetic mammography submitted. Computer aided detection analyzed. Breast composition: The breasts are almost entirely fatty. No suspicious masses, microcalcifications or architectural distortion. Stable bilateral breast masses with calcifications. No suspicious grouping of calcifications. MM/MM scr tomosynthesis [id number] IMPRESSION: BI-RADS: 2 - Benign. FOLLOW UP: 1 Year Follow-up
== END 2024-12-03 09:29 | disposition home or self-care (01) ==
PROVIDERS: PCP Electrodiagnostic Medicine; Visit Provider Electrodiagnostic Medicine
DX: Z12.31 Encounter for screening mammogram for malignant neoplasm of breast (principal); R92.313 Mammographic fatty tissue density, bilateral breasts; N64.89 Other specified disorders of breast; R92.1 Mammographic calcification found on diagnostic imaging of breast
CPT/HCPCS: 77063; 77067

== ENCOUNTER 2024-12-23 09:23 | Outpatient (CLI) | payer MEDICARE, OTHER, SELFPAY ==
--- NOTE | 2024-12-23 | FL_ITS ---
FL barium swallow modifd [id number] REASON FOR EXAM: Other dysphagia FLUOROSCOPY TIME: 3min [id number] # OF SPOT FILMS: None TECHNIQUE: Examination was supervised by the speech therapy department. Patient was examined in the sitting upright lateral projection. The swallowing of barium of multiple consistencies was fluoroscopically monitored and video recorded. FINDINGS: With thin liquids, there was noted to be penetration of contrast into the laryngeal vestibule without darrin aspiration. There was no impedance to the passage of the barium tablet through the thoracic esophagus and into the stomach. IMPRESSION: A detailed report of the swallowing will be rendered by the speech therapy department. Penetration without aspiration. No esophageal obstruction. MTDD
== END 2024-12-23 09:24 | disposition home or self-care (01) ==
LOC: RAD 09:25
PROVIDERS: PCP Electrodiagnostic Medicine; Visit Provider Electrodiagnostic Medicine
DX: R13.19 Other dysphagia (principal)
CPT/HCPCS: 74230; 92611

== ENCOUNTER 2025-01-09 06:42 | Outpatient (CLI) | payer MEDICARE, OTHER, SELFPAY ==
--- NOTE | 2025-01-09 07:00 | USCV_ITS ---
Aarti Biggs Age: 69 Gender: F : 1955 Exam Date: 01/09/2025 07:05 Ordering Phys: Harish Albright DO Technologist: Constantino Mooney [place] [facility] [place]: cardiac murmur BP: 144 / 84 HR: 70 Rhythm: Sinus Technical Quality: Adequate MEASUREMENTS (Male / Female) Normal Values 2D ECHO LV Diastolic Diameter PLAX 5.1 cm 4.2 - 5.9 / 3.9 - 5.3 cm IVS Diastolic Thickness 0.9 cm 0.6 - 1.0 / 0.6 - 0.9 cm IVS Systolic Thickness 1.1 cm LVPW Diastolic Thickness 0.9 cm 0.6 - 1.0 / 0.6 - 0.9 cm LVPW Systolic Thickness 1.6 cm LVOT Diameter 2.0 cm LV Ejection Fraction 2D Teich 65.7 % LV Ejection Fraction MOD 4C 59.1 % LV Ejection Fraction MOD 2C 58.7 % LV Ejection Fraction 2C AL 61.2 % LA Diameter 3.3 cm RA Systolic Volume 4C AL 46.7 ml RA Systolic Volume 4C MOD 46.3 ml LA Sys Volume AL 54.5 cm cubed LA Sys Volume Index AL 23.1 cm cubed/m squared Aorta at Sinotubular Diameter 2.3 cm M-MODE LA Ao Ratio MM 1.3 AV Cusp Separation MM 1.6 cm DOPPLER AV Peak Velocity 134.0 cm/s LVOT Peak Velocity 87.0 cm/s AV Area Cont Eq vti 2.0 cm squared AV Area Cont Eq pk 2.0 cm squared MV Peak Velocity 96.0 cm/s MV Area PHT 4.4 cm squared Mitral E to A Ratio 0.9 TV Peak Velocity 287.3 cm/s TR Peak Velocity 317.0 cm/s TR Peak Gradient 40.2 mmHg TR Mean Velocity 246.0 cm/s TR Mean Gradient 24.6 mmHg TR Velocity Time Integral 87.3 cm PV Peak Velocity 98.0 cm/s RV Ejection Time 0.3 s FINDINGS Left Ventricle Normal left ventricular size, systolic function and wall thickness, with no regional wall motion abnormalities. Left ventricular ejection fraction is estimated at 60 %. Grade I/IV diastolic dysfunction (abnormal relaxation filling pattern), normal to mildly elevated filling pressures. Right Ventricle The right ventricle is normal in size and function. Right Atrium The right atrium is normal in size. Left Atrium The left atrium is normal in size. Mitral Valve Structurally normal mitral valve without significant stenosis or prolapse. There is no mitral regurgitation. Aortic Valve Structurally normal aortic valve without significant sclerosis or stenosis. There is no aortic regurgitation. Tricuspid Valve Structurally normal tricuspid valve without significant stenosis or regurgitation. Pulmonary artery systolic pressure is normal. Pulmonic Valve Structurally normal pulmonic valve without significant stenosis. There is no pulmonic regurgitation. Pericardium Normal pericardium without effusion. Aorta Normal ascending aorta dimension. IVC The inferior vena cava appears normal. CONCLUSIONS Normal left ventricular size, systolic function and wall thickness, with no regional wall motion abnormalities. Left ventricular ejection fraction is estimated at 60 %. Grade I/IV diastolic dysfunction (abnormal relaxation filling pattern), normal to mildly elevated filling pressures. There is no pericardial effusion. No significant valve abnormalities. Right atrial pressure is around 5 mm of mercury. Eric Rodrigues MD (Electronically Signed) Final Date: 11 January 2025 17:49 S
== END 2025-01-09 06:43 | disposition home or self-care (01) ==
LOC: RAD 06:42
PROVIDERS: PCP Electrodiagnostic Medicine; Visit Provider Electrodiagnostic Medicine
DX: R01.1 Cardiac murmur, unspecified (principal); I51.89 Other ill-defined heart diseases
CPT/HCPCS: 93306

== ENCOUNTER 2025-01-29 12:41 | Outpatient (RCR) | payer MEDICARE, OTHER, SELFPAY | END 2025-02-08 23:59 | disposition home or self-care (01) | LOC: SST 12:41 | PROVIDERS: Visit Provider Electrodiagnostic Medicine | DX: R13.12 Dysphagia, oropharyngeal phase (principal) | CPT/HCPCS: 92507 ==

== ENCOUNTER 2025-02-09 05:00 | Outpatient (RCR) | payer MEDICARE, OTHER, SELFPAY | END 2025-03-10 23:59 | disposition home or self-care (01) | LOC: SST 05:00 | PROVIDERS: Visit Provider Electrodiagnostic Medicine | DX: R13.12 Dysphagia, oropharyngeal phase (principal) | CPT/HCPCS: 92507 ==

== ENCOUNTER 2025-03-11 05:00 | Outpatient (RCR) | payer MEDICARE, OTHER, SELFPAY | END 2025-04-10 23:59 | disposition home or self-care (01) | LOC: SST 05:00 | PROVIDERS: Visit Provider Electrodiagnostic Medicine | DX: R13.12 Dysphagia, oropharyngeal phase (principal) | CPT/HCPCS: 92507 ==

== ENCOUNTER → 2025-03-31 10:11 | Outpatient (BNVA) | payer MEDICARE, OTHER, SELFPAY | PROVIDERS: PCP Family Medicine Adult Medicine; Visit Provider Student in an Organized Health Care Education/Training Program | DX: M70.61 Trochanteric bursitis, right hip (principal) | CPT/HCPCS: 99213 ==

== ENCOUNTER → 2025-04-23 14:12 | Outpatient (BNVA) | payer MEDICARE, OTHER, SELFPAY | PROVIDERS: PCP Family Medicine Adult Medicine; Visit Provider Nurse Practitioner Family | DX: L73.8 Other specified follicular disorders (principal); Z08 Encounter for follow-up examination after completed treatment for malignant neoplasm; Z85.828 Personal history of other malignant neoplasm of skin; L82.0 Inflamed seborrheic keratosis; L53.8 Other specified erythematous conditions; R20.8 Other disturbances of skin sensation; Z78.9 Other specified health status; L57.0 Actinic keratosis | CPT/HCPCS: 17000; 17110; 99213 ==

== ENCOUNTER 2025-06-09 12:57 | Emergency (ER) | payer MEDICARE, OTHER, SELFPAY ==
[2025-06-09 13:06] VITALS: BP 133/84; PULSE 93; RESP 16; TEMP 36.4; O2SAT 96; BMI 35.4
--- OUTSIDE RECORDS SUMMARY | 2025-06-09 13:16 | XMS_ITS | Clinical Summary ---
Author Organization [facility] Address [address] [place] [address] Care Team Providers Care Health Promotion Educator Name Role Phone Unavailable Primary Care Provider Unavailabl e Allergies No known active allergies Medications allopurinoL (ZYLOPRIM) 100 mg tablet Take 100 mg by mouth daily. 5 Active amitriptyline (ELAVIL) 50 mg tablet Take 50 mg by mouth daily. Active atorvastatin (LIPITOR) 40 mg tablet Take 1 tablet every day by oral route at bedtime for 90 days. 5 Active DULoxetine (CYMBALTA) 30 mg Capsule, Delayed Release(E.C.) Take 1 capsule every day by oral route for 90 days. 5 Active hydroCHLOROthia zide 25 mg tablet Take 25 mg by mouth daily. 5 Active lisinopriL (PRINIVIL) 20 mg tablet Take 1 tablet every day by oral route for 90 days, for blood pressure. 5 Active meloxicam (MOBIC) 7.5 mg tablet Take 7.5 mg by mouth daily. Active omeprazole (PriLOSEC) 40 mg Capsule, Delayed Release(E.C.) Take 40 mg by mouth daily. 5 Active solifenacin (VESICARE) 10 mg Tablet Take 10 mg by mouth daily. Active azelastine (ASTELIN) 137 mcg/actuation nasal spray Administer 2 Sprays in each nostril 2 times daily. 1 mL 11 5 Active fluticasone propionate (FLONASE) 50 mcg/spray [place], Suspension nasal inhaler Administer 2 Sprays in each nostril daily. 16 Gram 11 Active benzonatate (TESSALON) 100 mg capsule Take 1 Capsule (100 mg) by mouth 3 times daily as needed for Cough. 90 Capsule 2 5 Active Active Problems No known active problems Encounters Date Type Department Care Team Description 06/02/2025 External Device Data STL ABSTRACTION Provider, Abstract 04/30/2025 11:45 AM FITNESS AND WELLNESS DIRECTOR Office Visit [facility] [address] [place] [id number] Lencho Mejia MD Non-seasonal allergic rhinitis due to other allergic trigger (Primary Dx); LPRD (laryngopharyngeal reflux disease); Presbylarynx; Chronic cough 04/01/2025 External Device Data STL ABSTRACTION Provider, Abstract 03/31/2025 External Device Data STL ABSTRACTION Provider, Abstract from Last 3 Months Family History Medical History Relation Name Comments COPD Father Heart Disease Father Cancer Mother Wandy Pozo 74 Relation Name Status Comments Father Mother Wandy Pozo Social History Tobacco Use Types Packs/Day Years Used Date Smoking Tobacco: Never Smokeless Tobacco: Never Tobacco Cessation:Counseling Given: Not Answered Alcohol Use Standard Drinks/Week Comments Never 0 (1 standard drink = 0.6 oz pur e alcohol) Comments Unknown Sex and Gender Information Value Date Recorded Sex Assigned at Not on file Legal Sex Female 11:15 AM CDT Gender Identity Not on file Sexual Orientation Not on file Last Filed Vital Signs Vital Sign Reading Time Taken Comments Blood Pressure 134/84 04/30/2025 11:29 AM FITNESS AND WELLNESS DIRECTOR Pulse - - Temperature - - Respiratory Rate - - Oxygen Saturation - - Inhaled Oxygen Concentration - - Weight 110.4 kg (243 lb 6.4 oz) 025 11:29 AM FITNESS AND WELLNESS DIRECTOR Height 175.3 cm (5' 9 ) 04/30/2025 11:2 9 AM FITNESS AND WELLNESS DIRECTOR Body Mass Index 35.94 04/30/2025 11:29 AM FITNESS AND WELLNESS DIRECTOR Plan of Treatment Upcoming Encounters Date Type Department Care Team (Late st Contact Info) Description 07/30/2025 11:30 AM FITNESS AND WELLNESS DIRECTOR Office Visit [facility] [address] [place] [address] Lencho Mejia MD [address] [place] [address] Health Maintenance Due Date Last Done Comments BREAST CANCER SCREENING 1993 COLORECTAL SCREENING 1998 Colorectal Cancer Screening 1998 FIT-DNA Q 3 years 1998 FIT/FOBT Q 1 year 1998 Flex Sig/CT Colonography Q 5 years 1998 PNEUMOCOCCAL VACCINE 50+ YEA RS (1 of 1 - PCV) 12/13/2003 RSV VACCINE (60+ or ) (1 - Risk 50-74 years 1-dose series) 12/13/2003 OSTEOPOROSIS SCREENING 2018 DTAP/TDAP/TD VACCINES (1 - Tdap) 11/10/2024 11/10/19 25 INFLUENZA VACCINE (#1) 2025 COVID-19 Vaccine ( season) 2025 06/28/2021, 08/18/2020, 07/21/2020 ZOSTER VACCINE Completed 12/15/2021, 08/31/2021 Insurance MEDICARE PART A AND B [facility]
--- OUTSIDE RECORDS SUMMARY | 2025-06-09 13:16 | XMS_ITS | Patient Health Record ---
Author Organization [facility] Address [address] [place] [address] Care Team Providers Care Motor Vehicle Representative Name Role Phone Jovita Ny Primary Care Provider Shira Gary Unavailable [phone] Allergies No Known Allergies Reason For Referral No Information Medications Medication SIG (Take, Route, Fr equency, Duration) Notes Start Date End Date Status oxyBUTYnin 5mg BID Active ALPRAZolam Active hydroCHLOROthiazide Active Amitriptyline HCl Ac tive DULoxetine HCl Activ e Social History Tobacco Use: Social History Observation Description Date Details (start date - stop date) Never Smoker NA - NA Social History Tobacco Use: Social Info Question Answer Notes xTobacco Use/Smoking Are you a nonsmoker Problems Problem Type SNOMED Code ICD Code Onset Dates Problem Status W/U Status Risk Notes Problem Acute cystitis (31603775) Acute cystitis with hematuria (N30.01) Active confirmed Problem Constipation (60831434) Constipation (K59.00) Active confirmed Problem Recurrent urinary tract infection (542517364) Recurrent UTI (N39.0) Active confirmed Problem Overactive urinary bladder (disorder) (353112422) OAB (overactive bladder) (N32.81) Active confirmed Problem History of hydronephrosis (7993564120026537 1) History of hydronephrosis (Z87.448) Active confirmed Problem History of stress incontinence (629690637) History of stress incontinence (Z87.448) Active confirmed Plan Of Treatment No Information Insurance Providers Payer Name Payer Address Payer Phone Subscriber Number Group Number Insured Name Patient Relationship to Insured Coverage Start Date Coverage End Date [place] [address] [place] [phone] [id number] Aarti Biggs Self - patient is the insured [place] [address] [place] [address] [phone] [id number] Aarti Biggs Self - patient is the insured Medical (General) History Medical History History ICD Code overactive bladder (OAB) recurrent urinary tract infections Surgical History Surgery Date(Month/Year) tubal ligation hysterectomy hydronephrosis Hospitalization History Reason Date(Month/Year) surgery
--- OUTSIDE RECORDS SUMMARY | 2025-06-09 13:16 | XMS_ITS | Encounter Summary ---
Author Organization [facility] Address [address] [place] [address] Care Team Providers Care Gospel Singer Name Role Phone Unavailable Primary Care Provider Unavailabl e Encounter Details Date Type Department Care Team (Late st Contact Info) Description 06/02/2025 External Device Data [facility] ABSTRACTION Provider, Abstract NO ADDRESS ON FILE Social History Tobacco Use Types Packs/Day Years Used Date Smoking Tobacco: Never Smokeless Tobacco: Never Alcohol Use Standard Drinks/Week Comments Never 0 (1 standard drink = 0.6 oz pur e alcohol) Comments Unknown Sex and Gender Information Value Date Recorded Sex Assigned at Not on file Legal Sex Female 11:15 AM CDT Gender Identity Not on file Sexual Orientation Not on file documented as of this encounter Plan of Treatment Upcoming Encounters Date Type Department Care Team (Late st Contact Info) Description 07/30/2025 11:30 AM MEDICAL PRACTITIONERS Office Visit [facility] [address] [place] [address] Lencho Mejia MD [address] [place] [address] documented as of this encounter Visit Diagnoses Not on filedocumented in this encounter
--- NOTE | 2025-06-09 13:22 | CT_ITS ---
WS: [id number] CT ABDOMEN PELVIS TECHNIQUE: Noncontrast CT of the abdomen and pelvis with coronal and sagittal reformatted images. CLINICAL INFORMATION: right flank pain COMPARISON: 07/16/2024 DLP: 967.[address] scans at [facility] use at least one of these dose optimization techniques: automated exposure control; mA and/or kV adjustment per patient size (includes targeted exams where dose is matched to clinical indication); or iterative reconstruction. FINDINGS: Prior hysterectomy. 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 Moderate dilatation LEFT renal pelvis progressed compared to previous with moderate LEFT hydronephrosis. Inflammatory stranding and edema about the LEFT kidney more prominent about the renal pelvis. Small amount of increased a ttenuation in the renal pelvis likely a small amount of proteinaceous debris or tiny sludgelike calculi. No visualized obstructing LEFT renal or ureteral calculi. Recommend correlation for pyelonephritis or recently passed calculus. No hydronephrosis in the RIGHT kidney. Bladder appears normal. Moderate esophageal hiatal hernia with air-fluid level in the distal esophagus with achalasia. 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 Adrenal glands are normal. Fatty atrophy of the pancreas. Small fat-containing umbilical hernia. Severe chronic central canal stenosis L4-5. Mild fecal retention in the colon. 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 CT/CT kidney stone 17227 IMPRESSION: 1. Moderate LEFT hydronephrosis with inflammatory stranding and edema about th e LEFT kidney. Dilatation of LEFT renal pelvis. No evidence of obstructing LEFT renal or ureteral calculi. Recommend correlation for pyelonephritis or recentl y passed stone. 2. 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 Prior hysterectomy Notified Hortensia Lozano MD at 06/09/2025 2:15 PM.
--- NOTE | 2025-06-09 13:32 | W.ED.ABDPA2 ---
HPI - Abdominal Pain General: Chief Complaint: Abdominal Pain Stated Complaint: pain in left side, vomitting, trouble urinating Time Seen by Provider: 06/09/25 13:19 Source: patient Mode of arrival: ambulatory Limitations: no limitations History of Present Illness: 69-year-old female states that roughly 3 hours ago she had a sudden onset of left-sided abdominal and flank pain. States it was a sharp pain that since improved her pain is currently a 2 out of 10. States she has also had some vomiting along with some difficulty urinating. She denies any fevers denies any worse improved factors denies any diarrhea. Associated Symptoms: Reports vomiting Related Data Home Medications ?Medication ?Instructions ?Recorded ?Confirmed atorvastatin 40 mg tablet (Lipitor) 40 mg PO DAILY 10/01/24 03/31/25 coQ10 (ubiquinol) 100 mg capsule 100 mg PO BID 10/01/24 03/31/25 (Qunol Karthik CoQ10) collagen,hydrolysate 500 mg-biotin cap PO 10/01/24 03/31/25 800 mcg-ascorbic acid 50 mg capsule (Collagen 1500 Plus C) Previous Rx's ?Medication ?Instructions ?Recorded amitriptyline 50 mg tablet See Rx Instructions .Route 01/09/24 .COMPLEX #90 tabs duloxetine 60 mg capsule,delayed 60 mg PO DAILY #90 caps 01/09/24 release (Cymbalta) omeprazole 40 mg capsule,delayed 40 mg PO DAILY #90 caps 01/09/24 release solifenacin 10 mg tablet 10 mg PO DAILY #90 tabs 04/10/24 allopurinol 100 mg tablet See Rx Instructions .Route 06/17/24 .COMPLEX #90 tabs meloxicam 7.5 mg tablet See Rx Instructions .Route 06/17/24 .COMPLEX #180 tabs hydrochlorothiazide 25 mg tablet 25 mg PO QAM Edema/Htn #90 tabs 06/26/24 ciprofloxacin HCl 500 mg tablet 500 mg PO BID #14 tabs 06/09/25 ondansetron 4 mg disintegrating 4 mg PO Q6H PRN nausea and 06/09/25 tablet vomiting #14 tabs Allergies Allergy/AdvReac Type Severity Reaction Status Date / Time No Known Allergies Allergy Verified 06/09/25 13:11 Review of Systems GI: Reports: abdominal pain and vomiting [facility] ED PFSH: Medical History Osteoarthritis involving multiple joints on both sides of body both hands, both knees, rt shoulder, DDD cervical & Lumbar spine Osteoarthritis of right shoulder Herpes zoster Dx 02/27/2023 Pneumonia Insomnia History of nonmelanoma skin cancer Gastroesophageal reflux Fibromyalgia Angiomyolipoma of kidney Localized osteoarthritis of both hands Surgical History S/P nasal surgery (~11/2019) Broke nose from fall. Dr. Loomis at [facility] in [place], [place] Hx of tubal ligation Status post surgery (~2009) 2009 or . Kink in ureter. Performed in [place], [place]. H/O dilation and curettage (09/26/13) Dx: PMB. Performed by Dr. Mayra Gregory at [facility] in [place], [place]. History of total vaginal hysterectomy (TVH) (10/21/13) Total partial vaginal hysterectomy, Anterior vaginal repair, Single incision suburethral sling. Dx: PMB, uterovaginal prolapse, stress urinary incontinence. Performed by Dr. Malachi Silverman at [facility] in [place], [place]. Family History Mother Colon cancer Father Skin cancer Congestive heart failure (CHF) COPD (chronic obstructive pulmonary disease) Heart disease Grandmother Stroke Ovarian cancer Diabetes Maternal Grandmother Stroke Social History Smoking and tobacco/nicotine status: never used tobacco/nicotine Alcohol intake: never Substance/Drug Use: never Physical Exam Const: COMMON NORMALS: no acute distress, patient oriented x3 and healthy appearing HENMT: COMMON NORMALS: normocephalic and atraumatic HEAD & SCALP: normocephalic and atraumatic Neck/C-Spine: COMMON NORMALS: full ROM and supple Chest: COMMONS NORMALS: normal inspection of the chest and normal palpation of entire chest wall Resp: COMMON NORMALS: normal respiratory effort, No retractions, No use of accessory muscles and clear to auscultation bilaterally AUSCULTATION: clear to auscultation bilaterally Cardio: COMMON NORMALS: regular rate, regular rhythm and No murmurs present (Cardio) RATE: regular rate RHYTHM: regular rhythm GI: COMMON NORMALS: Normal to inspection, nondistended, normoactive bowel sounds present, Soft to palpation, non-tender and no masses PALPATION: Yes Soft to palpation Extremity: COMMON NORMALS: normal to inspection and full ROM Neuro: COMMON NORMALS: patient oriented x3, moves all extremities and no focal motor deficits Psych: COMMON NORMALS: mental status grossly normal, Normal thought process present and cooperative THOUGHT PROCESS: Normal thought process present Skin: COMMON NORMALS: no rashes or lesions noted and no wounds GENERAL SKIN EXAM: no rashes or lesions noted Course Vital Signs: Vital signs: Vital Signs Temperature 97.5 F L 06/09/25 13:06 Pulse Rate 124 H 06/09/25 15:20 Respiratory Rate 18 06/09/25 14:07 Blood Pressure 173/73 06/09/25 15:20 Pulse Oximetry 94 06/09/25 15:20 Oxygen Delivery Me thod Room Air 06/09/25 15:20 MDM - Abdominal Pain Medical Decision Making Patient presents here with left flank pain also difficulty urinating. Differential includes kidney stone, UTI, pyelonephritis. Patient is currently pain-free blood work showed no significant abnormality does have a urinary tract infection CT scan shows Sebastián versus a recently passed stone. Her history is consistent with likely recently passed stone she has no signs of being septic did give her IV Rocephin here will prescribe her Cipro for the UTI along with nausea medicine patient's wanting go home I feel she is stable for discharge informed her she has fever or vomiting or worsening pain she is return she understands agrees to plan. Medical Records I reviewed the patient's medical records. Lab Data I reviewed the patient's lab results. 06/09/25 13:52 06/09/25 13:52 Labs/Radiology: Radiology Impressions Abdomen/Pelvis CT 06/09/25 13:22 IMPRESSION: 1. Moderate LEFT hydronephrosis with inflammatory stranding and edema about the LEFT kidney. Dilatation of LEFT renal pelvis. No evidence of obstructing LEFT renal or ureteral calculi. Recommend correlation for pyelonephritis or recently passed stone. 2. 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 Prior hysterectomy Notified Hortensia Lozano MD at 06/09/2025 2:15 PM. Laboratory Results WBC 1.57 10^3/uL (3.29-11.43) L 06/09/25 13:52 RBC 4.93 10^6/uL (3.85-5.65) 06/09/25 13:52 Hgb 15.10 g/dL (11.27-16.99) 06/09/25 13:52 Hct 46.4 % (36-47) 06/09/25 13:52 MCV 94.1 fl (85-98) 06/09/25 13:52 MCH 30.6 pg (27-33) 06/09/25 13:52 MCHC 32.5 g/dL (30-55) 06/09/25 13:52 RDW 14.3 % (12.1-15.1) 06/09/25 13:52 Plt Count 191 10^3/cmm (157-399) 06/09/25 13:52 MPV 10.4 fL (7.4-10.4) 06/09/25 13:52 Neut % (Auto) 79.1 % 06/09/25 13:52 Lymph % (Auto) 17.8 % 06/09/25 13:52 Bucks % (Auto) 1.3 % 06/09/25 13:52 Eos % (Auto) 0.6 % 06/09/25 13:52 Baso % (Auto) 0.6 % 06/09/25 13:52 Neut # (Auto) 1.24 10^3/uL (1.8-7.7) L 06/09/25 13:52 Lymph # (Auto) 0.3 10^3/uL (0.8-4.8) L 06/09/25 13:52 Bucks # (Auto) 0.0 10^3/uL (0.2-0.9) L 06/09/25 13:52 Eos # (Auto) 0.0 10^3/uL (0.0-0.8) 06/09/25 13:52 Baso # (Auto) 0.0 10^3/uL (0.0-0.1) 06/09/25 13:52 Nucleated RBC % (auto) 0 % 06/09/25 13:52 Nucleated RBCs # 0.0 /100WBC 06/09/25 13:52 Sodium 141 mmol/L (136-145) 06/09/25 13:52 Potassium 4.1 mmol/L (3.5-5.1) 06/09/25 13:52 Chloride 102 mmol/L (98-107) 06/09/25 13:52 Carbon Dioxide 22 mmol/L (22-29) 06/09/25 13:52 Anion Gap 21.1 (5-19) H 06/09/25 13:52 BUN 20 mg/dL (8-23) 06/09/25 13:52 Creatinine 1.3 mg/dL (0.5-0.9) H 06/09/25 13:52 GFR Calculation Not Reportable 06/09/25 13:52 Glucose 131 mg/dL (65-115) H 06/09/25 13:52 Calculated Osmolality 296 mOsm/kg (285-295) H 06/09/25 13:52 Calcium 10.5 mg/dL (8.5-10.5) 06/09/25 13:52 Total Bilirubin 0.9 mg/dL (0.15-1.2) 06/09/25 13:52 AST 34 U/L (0-32) H 06/09/25 13:52 ALT 29 U/L (0-33) 06/09/25 13:52 Alkaline Phosphatase 95 U/L (35-105) 06/09/25 13:52 Total Protein 7.1 g/dL (6.6-8.7) 06/09/25 13:52 Albumin 4.1 g/dL (3.5-5.2) 06/09/25 13:52 Globulin 3.0 g/dL (1.3-4.6) 06/09/25 13:52 Lipase 16 U/L (13-60) 06/09/25 13:52 Urine Color Yellow (Yellow) 06/09/25 14:20 Urine Appearance Cloudy (CLEAR) A 06/09/25 14:20 Urine pH 6.5 (5-7) 06/09/25 14:20 Ur Specific [place] 1.014 (1.005-1.030) 06/09/25 14:20 Urine Protein Trace (Negative) A 06/09/25 14:20 Urine Glucose (UA) Negative (Normal) 06/09/25 14:20 Urine Ketones Trace (Negative) 06/09/25 14:20 Urine Blood 1+ (Negative) A 06/09/25 14:20 Urine Nitrate Positive (Negative) A 06/09/25 14:20 Urine Bilirubin Negative (Negative) 06/09/25 14:20 Urine Urobilinogen 0.2 mg/dL (Negative) 06/09/25 14:20 Ur Leukocyte Esterase 3+ (Negative) A 06/09/25 14:20 Urine RBC 3-5 /hpf (0-2) 06/09/25 14:20 Urine WBC >100 /hpf (0-5) H 06/09/25 14:20 Ur Squamous Epith Cells 0-5 /hpf (0-5) 06/09/25 14:20 Amorphous Sediment Not Reportable 06/09/25 14:20 Urine Bacteria 4+ /hpf (NONE) H 06/09/25 14:20 Hyaline Casts 3.30 /lpf 06/09/25 14:20 All radiology interpretation(s) finalized by discharge Discharge Plan Discharge Patient Disposition: Home Clinical Impression: Acute cystitis Condition: Stable Prescriptions: New ciprofloxacin HCl 500 mg tablet 500 mg PO BID Qty: 14 0RF ondansetron 4 mg tablet,disintegrating 4 mg PO Q6H PRN (Reason: nausea and vomiting) Qty: 14 0RF No Action amitriptyline 50 mg tablet See Rx Instructions .ROUTE .COMPLEX Qty: 90 1RF Dose Instruction: TAKE 1 TABLET BY MOUTH EVERY DAY Rx Instructions: TAKE 1 TABLET BY MOUTH EVERY DAY duloxetine [Cymbalta] 60 mg capsule,delayed release(DR/EC) 60 mg PO DAILY Qty: 90 1RF omeprazole 40 mg capsule,delayed release(DR/EC) 40 mg PO DAILY Qty: 90 1RF solifenacin 10 mg tablet 10 mg PO DAILY Qty: 90 0RF Collagen 1500 Plus C 500 mg-800 mcg- 50 mg capsule PO coQ10 (ubiquinol) [Qunol Karthik CoQ10] 100 mg capsule 100 mg PO BID atorvastatin [Lipitor] 40 mg tablet 40 mg PO DAILY meloxicam 7.5 mg tablet See Rx Instructions .ROUTE .COMPLEX Qty: 180 3RF Dose Instruction: TAKE 1 TABLET TWICE A DAY FOR ARTHRITIS/PAIN Rx Instructions: TAKE 1 TABLET TWICE A DAY FOR ARTHRITIS/PAIN allopurinol 100 mg tablet See Rx Instructions .ROUTE .COMPLEX Qty: 90 3RF Dose Instruction: TAKE 1 TABLET DAILY Rx Instructions: TAKE 1 TABLET DAILY hydrochlorothiazide 25 mg tablet 25 mg PO QAM Qty: 90 1RF Discharge Orders: Discharge ED (Routine); Ordered 06/09/25 Ordered By: Hortensia Lozano Referrals: Reece Cruz MD [Primary Care Provider, Family Practice] - 4-7 days Discharge Diet: Advance as tolerated Discharge Activity: Resume usual activity Patient Instructions: Urinary Tract Infection in Women (ED) Print Language: [place] Citizen Coding Level of Care Code ED Working Supervisor for [place]
[2025-06-09 14:00] LABS: Hematocrit 46.4 % (36-47); Hemoglobin 15.10 g/dL (11.27-16.99); Mean Corpuscular HGB Conc 32.5 g/dL (30-55); Mean Corpuscular Hemoglobin 30.6 pg (27-33); Mean Corpuscular Volume 94.1 fl (85-98); Nucleated Red Blood Cells % 0 %; Platelet Count 191 10^3/cmm (157-399); Red Blood Count 4.93 10^6/uL (3.85-5.65); White Blood Count 1.57 10^3/uL (3.29-11.43)
[2025-06-09 14:07] VITALS: RESP 18
[2025-06-09] MEDS: morphine 4 mg/mL SDV 1 mL IVP (14:07)
[2025-06-09] MEDS: ondansetron 2 mg/ML SDV 2 mL 4 MG IVP (14:07)
--- NOTE | 2025-06-09 14:14 | PC.NURSE ---
Pt. attempted to give urine sample pt. unable to provide one.
[2025-06-09 14:15] VITALS: BP 128/75; O2SAT 100
[2025-06-09 14:30] LABS: Alanine Aminotransferase 29 U/L (0-33); Albumin Level 4.1 g/dL (3.5-5.2); Alkaline Phosphatase 95 U/L (35-105); Anion Gap 21.1 (5-19); Aspartate Amino Transferase 34 U/L (0-32); Blood Urea Nitrogen 20 mg/dL (8-23); Calcium 10.5 mg/dL (8.5-10.5); Carbon Dioxide 22 mmol/L (22-29); Chloride 102 mmol/L (98-107); Globulin 3.0 g/dL (1.3-4.6); Glucose 131 mg/dL (65-115); Lipase 16 U/L (13-60); Osmolality Calculated 296 mOsm/kg (285-295); Potassium 4.1 mmol/L (3.5-5.1); Sodium 141 mmol/L (136-145); Total Protein 7.1 g/dL (6.6-8.7)
[2025-06-09 14:33] LABS: Glucose Urine UA Negative (Normal); Nitrate Urine Positive (Negative); Specific Gravity, Urine 1.014 (1.005-1.030)
[2025-06-09 14:44] VITALS: BP 120/75; PULSE 129; O2SAT 99
[2025-06-09 14:56] LABS: Add Urine Microscopic? YES
[2025-06-09 15:20] VITALS: BP 173/73; PULSE 124; O2SAT 94
[2025-06-09 15:21] LABS: UA Slide Review UA Slide Review Perf
[2025-06-09] MEDS: labetalol 5 mg/mL SDV 20mL 10 MG IVP (15:30)
--- NOTE | 2025-06-09 15:41 | PC.NURSE ---
Report given to Ember
[2025-06-09] MEDS: cefTRIAXone 1,000 mg SDV 1000 MG IVP (15:42)
[2025-06-09 15:59] VITALS: BP 152/77; PULSE 97; O2SAT 94
== END 2025-06-09 16:00 | disposition home or self-care (01) ==
PROVIDERS: Emergency Provider Emergency Medicine; PCP Family Medicine Adult Medicine
DX: N30.00 Acute cystitis without hematuria (principal); Z85.828 Personal history of other malignant neoplasm of skin
CPT/HCPCS: 74176; 80053; 81001; 83690; 85025; 96361; 96374; 96375; 99285; J0696; J2270; J2405; J3490; J7030